=== PATIENT | male | born 1975 | race Caucasian/White ===

== ENCOUNTER 2024-10-31 15:20 | Emergency (ER) | payer BC ==
[2024-10-31 15:28] VITALS: BP 116/82; PULSE 85
[2024-10-31] MEDS: Diphtheria,Pertussis(Acell),Tetanus Vaccine 0.5 ML Syringe IM ONE (15:31)
[2024-10-31] MEDS: Lidocaine 1% 5 ML VIAL INJECT ONE (15:53)
[2024-10-31] MEDS: Bacitracin/Neomycin/Polymyxin B Oint 0.9 GM U/D Packet TOP ONE (16:08)
== END 2024-10-31 16:19 | disposition home or self-care (01) ==
LOC: KA.ED 15:20
DX: S61.211A Laceration without foreign body of left index finger without damage to nail, initial encounter (principal); I10 Essential (primary) hypertension; W26.0XXA Contact with knife, initial encounter; Z23 Encounter for immunization
CPT/HCPCS: 12001; 90471; 90715; 99282-25; J2003